=== PATIENT | male | born 1960 | race Asian ===

== ENCOUNTER → 2025-04-15 10:36 | Outpatient (REF) | payer MEDICARE, SELFPAY | LOC: HWRAD 10:36 | PROVIDERS: ATTENDING PHYSICIAN Otolaryngology; FAMILY PHYSICIAN Internal Medicine | DX: J33.0 Polyp of nasal cavity (principal); H91.90 Unspecified hearing loss, unspecified ear; H72.92 Unspecified perforation of tympanic membrane, left ear; H69.92 Unspecified Eustachian tube disorder, left ear | CPT/HCPCS: 70480; 70486 ==